=== PATIENT | male | born 1995 | race Caucasian/White ===

== ENCOUNTER 2020-05-30 08:30 | Emergency (ER) | payer BC ==
[~2020-05-30 08:30] MED LIST: AMOXICILLIN500 M1 PO; IBUPROFEN800 MG PO
[2020-05-30] MEDS ORDERED: NAPROSYN500 MG PO (10:00)
== END 2020-05-30 10:50 | disposition home or self-care (01) ==
LOC: ER1 08:30
DX: S83.91XA Sprain of unspecified site of right knee, initial encounter (principal); S93.402A Sprain of unspecified ligament of left ankle, initial encounter; W22.8XXA Striking against or struck by other objects, initial encounter; Y93.67 Activity, basketball
CPT/HCPCS: 29530; 73564; 73610; 73630; 96372; 99283; J1885

== ENCOUNTER → 2020-06-14 | Outpatient (CLI) | payer BC ==
[~2020-06-14] MED LIST changes: +NAPROSYN500 MG PO
== END ==
LOC: KOH-I 10:57
DX: S83.511A Sprain of anterior cruciate ligament of right knee, initial encounter (principal); S89.81XA Other specified injuries of right lower leg, initial encounter; R93.6 Abnormal findings on diagnostic imaging of limbs; Z98.890 Other specified postprocedural states; X58.XXXA Exposure to other specified factors, initial encounter
CPT/HCPCS: 73721